=== PATIENT | female | born 1995 | race Caucasian/White ===

== ENCOUNTER 2017-04-28 10:55 | Emergency (ER) | payer OTHER ==
[2017-04-28 11:03] VITALS: BP 146/87; PULSE 74; TEMP 97.6; BMI 44.6
[2017-04-28] MEDS ORDERED: KETOROLAC TROMETHAMINE 60 MG/2 ML VIAL IM ONE (11:49)
--- NOTE | 2017-04-28 12:03 | PDOC ---
History of Present Illness - General Chief Complaint: Sore Throat Stated Complaint: THROAT PAIN Time Seen by Provider: 04/28/17 11:17 - History of Present Illness Initial Comments: 04/28/17 11:49 CHIEF COMPLAINT: throat pain HISTORY OF PRESENT ILLNESS: 22 yo F with recent T&A (3 days ago) presents to fast track with pain to throat and swelling to tongue unrelieved by oxycodone and prednisone. Patient states "my ENT doctor did say that it would take a week or so, but it just doesn't feel like it's getting better yet." PAST MEDICAL HISTORY: Denies past medical history FAMILY HISTORY: Denies SOCIAL HISTORY: Denies tobacco, alcohol, illicit drug use. SURGICAL HISTORY: Denies ALLERGIES: No known drug allergies REVIEW OF SYSTEMS General/Constitutional: Denies fever or chills. HEENT: Throat pain. Denies change in vision. Denies ear pain or discharge. Cardiovascular: Denies chest pain or shortness of breath. Respiratory: Denies cough, wheezing. Gastrointestinal: Denies nausea, vomiting, diarrhea. Genitourinary: Denies dysuria, frequency, or change in urination. Musculoskeletal: Denies joint or muscle swelling or pain. Denies neck or back pain. Skin: Denies rash. PHYSICAL EXAM General Appearance: Well-appearing, appropriately dressed. No apparent distress. HEENT: S/p tonsillectomy, granulation appreciated to b/l surgical sites. No bleeding, erythema, discharge. Tongue swelling appreciated. EOMI, PERRLA, normal voice, TMs normal, pharynx normal. No conjunctival pallor. No photophobia, scleral icterus. Neck: Supple. Trachea midline. No tenderness, rigidity, carotid bruit, stridor , lymphadenopathy, or thyromegaly. Respiratory/Chest: Lungs CTAB. Cardiovascular: RRR. S1, S2. Gastrointestinal/Abdominal: Normal bowel sounds. Abdomen soft, non-distended. No tenderness or rebound tenderness. No organomegaly, pulsatile mass, guarding , hernia, hepatomegaly, splenomegaly. Musculoskeletal/Extremities: Normal inspection. FROM of all extremities, normal capillary refill. Pelvis Stable. No CVA tenderness. No tenderness to extremities, pedal edema, swelling, erythema or deformity. Integumentary: Appropriate color, dry, warm. No cyanosis, erythema, jaundice or rash Neurologic: set illustrator II-XII intact. Fully oriented, alert. Appropriate mood/affect. Motor strength 5/5. No appreciable EOM palsy, facial droop or sensory deficit. Past History - Past Medical History Allergies/Adverse Reactions: Allergies Allergy/AdvReac Type Severity Reaction Status Date / Time No Known Allergies Allergy Verified 04/28/17 11:03 Home Medications: Ambulatory Orders Prednisolone Oral Solution [Orapred (5Mg/5Ml) Oral Solution -] 20 mg PO DAILY # 100 ml 04/28/17 Pseudoephedrine HCl [Sudafed *Pediatric Liquid* -] 10 ml PO DAILY PRN #200 ml COPD: No Other medical history: HECTOR DENIES MED HX - Suicide/Smoking/Psychosocial Hx Smoking History: Never smoked Hx Alcohol Use: No Drug/Substance Use Hx: No *Physical Exam - Vital Signs Last Vital Signs Temp Pulse Resp BP Pulse Ox 97.6 F 74 16 146/87 100 04/28/17 10:59 04/28/17 10:59 04/28/17 10:59 04/28/17 10:59 04/28/17 10:59 Medical Decision Making - Medical Decision Making 04/28/17 12:03 22 yo F with recent T&A (3 days ago) presents to fast track with pain to throat and swelling to tongue unrelieved by oxycodone and prednisone. Patient speaking in full sentences, denies any difficulty breathing. Patient denies any change of . -Toradol 60 mg IM Will change prednisone tab rx to methylprednisone liquid. Advised patient to f/u with oral surgeon tomorrow and of signs and symptoms for return to ER. Patient verbalized understanding and agrees to plan. *DC/Admit/Observation/Transfer Diagnosis at time of Disposition: Throat pain - Discharge Dispostion Disposition: HOME - Prescriptions Prescriptions: Prednisolone Oral Solution [Orapred (5Mg/5Ml) Oral Solution -] 20 mg PO DAILY # 100 ml Pseudoephedrine HCl [Sudafed *Pediatric Liquid* -] 10 ml PO DAILY PRN #200 ml PRN Reason: congestion - Referrals Referrals: Braulio Alaniz [Non Staff, Medical] - - Patient Instructions Printed Discharge Instructions: DI for Tonsillectomy-Adult Additional Instructions: Please take medications as prescribed; you may discontinue to the tablets of Prednisone. Please call your oral surgeon TOMORROW and advise him of your persistent pain and symptoms. If you develop any fever, chills, nausea, vomiting, diarrhea, or feel like you are having difficulty breathing, please return to the ER. - Post Discharge Activity
[2017-04-28] MEDS ORDERED: KETOROLAC TROMETHAMINE 60 MG/2 ML VIAL ONE (12:06)
[2017-04-28] MEDS ORDERED: prednisoLONE SODIUM PHOSPHATE 5 MG/5 ML ORAL SOLN BOTTLE PO ONE (12:09)
[2017-04-28] MEDS ORDERED: prednisoLONE SODIUM PHOSPHATE 15 MG/5 ML ORAL SOLN BOTTLE ONE (12:14)
== END 2017-04-28 12:27 | disposition home or self-care (01) ==
LOC: JERFT 10:55
PROC: 3E0233Z Introduction of Anti-inflammatory into Muscle, Percutaneous Approach (ICD-10-PCS; principal; 2017-04-28)
DX: J02.9 Acute pharyngitis, unspecified (principal)
CPT/HCPCS: 96372; 99281-25

== ENCOUNTER 2018-01-17 21:24 | Emergency (ER) | payer OTHER ==
[2018-01-17 21:29] VITALS: BP 119/55; PULSE 74; TEMP 98.8; BMI 40.8
--- NOTE | 2018-01-17 21:45 | PDOC ---
History of Present Illness - General Chief Complaint: Bite Stated Complaint: CAT BITE Time Seen by Provider: 01/17/18 21:39 - History of Present Illness Initial Comments: 23-year-old female with a past medical history significant for reflux she takes omeprazole her tetanus is up-to-date, she presents for evaluation of cat scratches and bites which occurred about half hour prior to arrival. She states the cat may have been jealous because she was putting her friend's dog the cat is up-to-date on vaccinations and can be observed the cat belongs to her friend 01/17/18 21:42 Past History - Past Medical History Allergies/Adverse Reactions: Allergies Allergy/AdvReac Type Severity Reaction Status Date / Time cat dander Allergy Verified 01/17/18 21:31 Home Medications: Ambulatory Orders Amox-Tr/K Cl [Augmentin - 875Mg Tablet] 1 tab PO BID #20 tablet 01/17/18 Omeprazole 20 mg PO ASDIR 01/17/18 Anemia: No COPD: No DVT: No - Surgical History Abdominal Surgery: Yes (sleeve) - Suicide/Smoking/Psychosocial Hx Smoking History: Never smoked Have you smoked in the past 12 months: No Hx Alcohol Use: No Drug/Substance Use Hx: No Substance Use Type: None Review of Systems - Review of Systems Integumentary: Yes: See HPI All Other Systems: Reviewed and Negative *Physical Exam - Vital Signs Last Vital Signs Temp Pulse Resp BP Pulse Ox 98.8 F 74 18 119/55 100 01/17/18 21:27 01/17/18 21:27 01/17/18 21:27 01/17/18 21:27 01/17/18 21:27 - Physical Exam Comments: There are multiple puncture alexander and excoriations without any signs of infection on the right forearm volar aspect, right thigh and abdomen. All alexander or clean and dry with normal surrounding skin color and temperature 01/17/18 21:43 *DC/Admit/Observation/Transfer Diagnosis at time of Disposition: Cat bite involving extremity - Discharge Dispostion Disposition: HOME Condition at time of disposition: Stable Decision to Admit order: No - Prescriptions Prescriptions: Amox-Tr/K Cl [Augmentin - 875Mg Tablet] 1 tab PO BID #20 tablet - Referrals Referrals: Dillon Fine [Non Staff, Medical] - - Patient Instructions Printed Discharge Instructions: How to Care for a Domestic Animal Bite Additional Instructions: Return to the emergency room should he develop any pain drainage or swelling around the areas of bites or scratches take the antibiotics as directed. Follow- up with the primary care physician in 2-3 days for further evaluation and treatment options. Keep the areas clean and dry with soap and water new may leave them open to air. He only need to cover the material draining. He may take Tylenol for any discomfort you have. Do not take any Advil Aleve or Motrin. - Post Discharge Activity
== END 2018-01-17 22:10 | disposition home or self-care (01) ==
LOC: JERFT 21:24
DX: S51.851A Open bite of right forearm, initial encounter (principal); S71.151A Open bite, right thigh, initial encounter; S31.159A Open bite of abdominal wall, unspecified quadrant without penetration into peritoneal cavity, initial encounter; W55.01XA Bitten by cat, initial encounter; Y93.K9 Activity, other involving animal care; Y92.018 Other place in single-family (private) house as the place of occurrence of the external cause; Y99.8 Other external cause status
CPT/HCPCS: 99281-25

== ENCOUNTER 2018-03-04 08:40 | Emergency (ER) | payer OTHER ==
[2018-03-04 08:52] VITALS: TEMP 98.1; BMI 37.8
--- NOTE | 2018-03-04 09:26 | PDOC ---
History of Present Illness - General History Source: Patient Exam Limitations: No Limitations - History of Present Illness Initial Comments: 03/04/18 09:54 The patient is a 23 year old female, with a significant PMH of gastric bypass in December who presents to the emergency department with abdominal pain since 5: 30AM this morning. Patient describes the abdominal pain as crampy, constant with associated back discomfort. Patient reports chills, nausea and one episode of nonbloody, nonbilious vomit. Patient has followed up at [facility] after the gastric sleeve surgery. Patient states she ate some pretzels before going to bed last night. Patient's last bowel movement was this morning, and reports it was normal. Patient denies similar symptoms in the past. Last menstrual period was one month ago. The patient denies chest pain, shortness of breath, headache and dizziness. Denies fever, diarrhea and constipation. Denies dysuria, frequency, urgency and hematuria. Allergies: NKA Past surgical history: None reported. Social history: No reported alcohol, drug or cigarette use. PCP: Dr. Dominguez Collier <Virginie Horner - Last Filed: 03/04/18 09:54> - General History Source: Patient Exam Limitations: No Limitations <Any Ji - Last Filed: 03/06/18 19:18> - General Chief Complaint: Pain, Acute Stated Complaint: STOMACH/BACK PAIN Time Seen by Provider: 03/04/18 09:25 Past History <Virginie Horner - Last Filed: 03/04/18 09:54> - Past Medical History Anemia: No COPD: No DVT: No - Surgical History Abdominal Surgery: Yes (sleeve) - Suicide/Smoking/Psychosocial Hx Smoking History: Never smoked Have you smoked in the past 12 months: No Hx Alcohol Use: No Drug/Substance Use Hx: No Substance Use Type: None <Any Ji - Last Filed: 03/06/18 19:18> - Past Medical History Allergies/Adverse Reactions: Allergies Allergy/AdvReac Type Severity Reaction Status Date / Time cat dander Allergy Verified 03/04/18 08:52 Home Medications: Ambulatory Orders NK [No Known Home Medication] 03/04/18 Review of Systems - Review of Systems Able to Perform ROS?: Yes Comments:: 03/04/18 09:58 ADULT ROS GENERAL/CONSTITUTIONAL: (+) chills. No fever. No weakness. HEAD, EYES, EARS, NOSE AND THROAT: No change in vision. No ear pain or discharge. No sore throat. CARDIOVASCULAR: No chest pain or shortness of breath. RESPIRATORY: No cough, wheezing, or hemoptysis. GASTROINTESTINAL: (+) Abdominal pain. (+) nausea. (+) vomiting. No diarrhea or constipation. GENITOURINARY: No dysuria, frequency, or change in urination. MUSCULOSKELETAL: No joint or muscle swelling or pain. No neck or back pain. SKIN: No rash NEUROLOGIC: No headache, vertigo, loss of consciousness, or change in strength/ sensation. ENDOCRINE: No increased thirst. No abnormal weight change. HEMATOLOGIC/LYMPHATIC: No anemia, easy bleeding, or history of blood clots. ALLERGIC/IMMUNOLOGIC: No hives or skin allergy. <Virginie Horner - Last Filed: 03/04/18 09:54> *Physical Exam - Vital Signs Last Vital Signs Temp Pulse Resp BP Pulse Ox 98.1 F 64 18 118/64 100 03/04/18 08:49 03/04/18 08:49 03/04/18 08:49 03/04/18 08:49 03/04/18 08:49 - Physical Exam Comments: 03/04/18 09:59 ADULT PE GENERAL: The patient is in no acute distress. HEAD: Normal with no signs of trauma. EYES: PERRLA, EOMI, sclera anicteric, conjunctiva clear. ENT: Ears normal, nares patent, oropharynx clear without exudates. Moist mucous membranes. NECK: Normal range of motion, supple without lymphadenopathy, JVD, or masses. LUNGS: Breath sounds equal, clear to auscultation bilaterally. No wheezes, and no crackles. HEART:Regular rate and rhythm, normal S1 and S2 without murmur, rub or gallop. ABDOMEN: Soft, nontender, normoactive bowel sounds. No guarding, no rebound. No masses palpable. EXTREMITIES: Normal range of motion, no edema. No clubbing or cyanosis. No erythema, or tenderness. NEUROLOGICAL: Cranial nerves II through XII grossly intact. Normal speech. No focal neurological deficits. MUSCULOSKELETAL: Back non-tender to palpation, no CVA tenderness SKIN: Warm, Dry, normal turgor, no rashes or lesions noted. <Virginie Horner - Last Filed: 03/04/18 09:54> - Vital Signs Last Vital Signs Temp Pulse Resp BP Pulse Ox 98.1 F 64 18 118/64 100 03/04/18 08:49 03/04/18 08:49 03/04/18 08:49 03/04/18 08:49 03/04/18 08:49 <Any Ji - Last Filed: 03/06/18 19:18> ED Treatment Course - LABORATORY CBC & Chemistry Diagram: 03/04/18 09:35 03/04/18 09:35 <Virginie Horner - Last Filed: 03/04/18 09:54> - LABORATORY CBC & Chemistry Diagram: 03/04/18 09:35 03/04/18 09:35 <Any Ji - Last Filed: 03/06/18 19:18> Medical Decision Making - Medical Decision Making Mr. Siddiqui is a 23-year-old female 2 months status post gastric sleeve presented to emergency department with diffuse abdominal pain. She's had nausea and vomiting. No fevers or chills. LMP: 1 month ago 23 yo F who presents to the ER with a complaint of abdominal pain Symptoms began this morning No fevers or chills (+) nausea (+) vomiting Pt post op s/p gastric sleeve Laboratory Tests 03/04/18 03/04/18 03/04/18 09:35 09:35 09:35 WBC 11.4 H Hgb 13.3 Hct 40.7 Plt Count 109 L BUN 7 Creatinine 0.5 L AST 123 H ALT 77 H Serum , Qual Negative Urine Blood Urine Nitrite Ur Leukocyte Esterase 03/04/18 14:00 WBC Hgb Hct Plt Count BUN Creatinine AST ALT Serum , Qual Urine Blood Negative Urine Nitrite Negative Ur Leukocyte Esterase Negative CT demonstrates probable ruptured cyst Results reviewed with patient I have explained that she should have TVUS 03/04/18 15:32 Pt very upset about note bring given something to eat and for waiting in the ER Results of patient's US reviewed with her She was given a copy Pt asked to follow up with computer video game designer 03/04/18 15:33 03/04/18 15:50 03/06/18 19:17 <Any Ji - Last Filed: 03/06/18 19:18> *DC/Admit/Observation/Transfer - Attestations Scribe Attestion: 03/04/18 09:59 Documentation prepared by Virginie Horner, acting as medical scientist for Any Ji MD. <Virginie Horner - Last Filed: 03/04/18 09:54> - Discharge Dispostion Decision to Admit order: No <Any Ji - Last Filed: 03/06/18 19:18> Diagnosis at time of Disposition: Abdominal pain Qualifiers: Abdominal location: unspecified location Qualified Code(s): R10.9 - Unspecified abdominal pain Ovarian cyst Qualifiers: Laterality: right Qualified Code(s): N83.201 - Unspecified ovarian cyst, right side - Discharge Dispostion Disposition: HOME Condition at time of disposition: Stable - Referrals Referrals: Dominguez Collier MD [Primary Care Provider] - - Patient Instructions Printed Discharge Instructions: DI for Ovarian Cyst, DI for Abdominal Pain- Adult Additional Instructions: Please review your results. Please read the [facility] ED Care Sheets describing your diagnosis. PLEASE NOTE we suggest at a minimum that you review all symptoms and final test results with a physician that will provide ongoing care for you. THANK YOU for allowing us to help begin your care of this latest issue. Keep in mind the treatment performed in the Emergency Department is NOT complete until you have followed up with your Doctor. We want you to return to the ED as soon as possible if symptoms get worse or if you have any problems whatsoever. We advised you to take the following medication(s) as directed: over the counter tylenol - Post Discharge Activity Forms/Work/School Notes: Back to Work, Back to School
[2018-03-04] MEDS ORDERED: PANTOPRAZOLE SODIUM 40 MG VIAL IVPUSH ONE (09:27)
[2018-03-04] MEDS ORDERED: morphine CARPU-JECT 4 MG/1 ML DISP.SYRIN IVPUSH ONE (09:27)
[2018-03-04] MEDS ORDERED: SODIUM CHLORIDE 1,000 ML IV STA (09:27)
[2018-03-04] MEDS ORDERED: ONDANSETRON 4 MG/2 ML VIAL IVPUSH ONE (09:36)
[2018-03-04] MEDS ORDERED: PANTOPRAZOLE SODIUM 40 MG/100 ML BAG IVPB ONE (09:45)
[2018-03-04] MEDS ORDERED: ONDANSETRON 4 MG/2 ML VIAL ONE (09:45)
[2018-03-04] MEDS ORDERED: morphine SULFATE 4 MG/ML VIAL ONE (09:45)
[2018-03-04 09:49] LABS: BASO % 0.2 % (0-2.0); EOS % 0.8 % (0-4.5); HEMATOCRIT 40.7 % (32.4-45.2); HEMOGLOBIN 13.3 GM/dL (10.7-15.3); LYMPH % 10.3 % (8-40); MCH 28.5 pg (25.7-33.7); MCHC 32.8 g/dl (32.0-36.0); MEAN CELL VOLUME 86.9 fl (80-96); MEAN PLT VOLUME 13.1 fl (7.5-11.1); MONO % 8.6 % (3.8-10.2); NEUT % 80.1 % (42.8-82.8); PLATELET COUNT 109 K/MM3 (134-434); RBC 4.68 M/mm3 (3.60-5.2); RDW 14.4 % (11.6-15.6); WHITE BLOOD COUNT 11.4 K/mm3 (4.0-10.0)
[2018-03-04 10:23] LABS: ALK PHOS 77 U/L (45-117); AMYLASE 36 U/L (25-115); ANION GAP 11 MMOL/L (8-16); BILIRUBIN,TOTAL 0.8 mg/dL (0.2-1); BLOOD UREA NITROGEN 7 mg/dL (7-18); CALCIUM 9.1 mg/dL (8.5-10.1); CHLORIDE 107 mmol/L (98-107); CO2 22 mmol/L (21-32); CREATININE 0.5 mg/dL (0.55-1.3); GLUCOSE,RANDOM 126 mg/dL (74-106); LIPASE 69 U/L (73-393); POTASSIUM 3.6 mmol/L (3.5-5.1); SGOT/AST 123 U/L (15-37); SGPT/ALT 77 U/L (13-61); SODIUM 140 mmol/L (136-145); TOT PROT 7.2 g/dl (6.4-8.2)
[2018-03-04 14:16] VITALS: BP 107/59; PULSE 70
[2018-03-04 14:20] LABS: PH,URINE 8.5 (5.0-8.0); URINE APPEARANCE Clear; URINE BILIRUBIN Negative (<2.0 mg/dL); URINE COLOR Yellow; URINE GLUCOSE (UA) Negative (NEGATIVE); URINE KETONE Negative (NEGATIVE); URINE LEUK ESTERASE Negative (NEGATIVE); URINE NITRITE Negative (NEGATIVE); URINE PROTEIN Negative (NEGATIVE); URINE UROBILINOGEN 0.2 mg/dL (0.2-1.0)
== END 2018-03-04 15:40 | disposition home or self-care (01) ==
LOC: JER 08:40
PROC: 3E033NZ Introduction of Analgesics, Hypnotics, Sedatives into Peripheral Vein, Percutaneous Approach (ICD-10-PCS; principal; 2018-03-04)
PROC: 3E033GC Introduction of Other Therapeutic Substance into Peripheral Vein, Percutaneous Approach (ICD-10-PCS; 2018-03-04)
PROC: 3E0337Z Introduction of Electrolytic and Water Balance Substance into Peripheral Vein, Percutaneous Approach (ICD-10-PCS; 2018-03-04)
DX: R10.9 Unspecified abdominal pain (principal); N83.201 Unspecified ovarian cyst, right side
CPT/HCPCS: 36415; 74177-TC; 76830-TC; 80053; 81003; 82150; 83690; 84703; 85025; 87086; 96361; 96374; 96375; 99283-25; J7030

== ENCOUNTER → 2018-03-06 | Emergency (ER) | payer OTHER ==
--- NOTE | 2018-03-06 20:09 | PDOC ---
Rapid Medical Evaluation Chief Complaint: Pain Time Seen by Provider: 03/06/18 20:05 Medical Evaluation: Allergies Allergy/AdvReac Type Severity Reaction Status Date / Time cat dander Allergy Verified 03/04/18 08:52 03/06/18 20:06 c/o abdominal pain with nausea. denies vomiting history of ovarian cyst PE: patient alert ox3. A: abdominal pain P: ua urine patient to the ER for further management of care. Discharge Disposition - Diagnosis Abdominal pain Qualifiers: Abdominal location: upper abdomen, unspecified Qualified Code(s): R10.10 - Upper abdominal pain, unspecified - Referrals Referrals: Dominguez Collier MD [Primary Care Provider] - - Patient Instructions - Post Discharge Activity
[2018-03-06 20:11] VITALS: BP 92/42; PULSE 65; TEMP 98.4; BMI 38.9
== END | disposition left against medical advice (07) ==
LOC: JER 19:42
DX: R10.10 Upper abdominal pain, unspecified (principal); Z87.42 Personal history of other diseases of the female genital tract
CPT/HCPCS: 99281-25

== ENCOUNTER 2018-06-21 21:46 | Emergency (ER) | payer OTHER ==
[2018-06-21 21:55] VITALS: BP 127/77; PULSE 58; TEMP 97.5; BMI 32.8
--- NOTE | 2018-06-21 22:29 | PDOC ---
History of Present Illness - General History Source: Patient Exam Limitations: No Limitations - History of Present Illness Initial Comments: 06/21/18 23:28 The patient is a 23 year old female, with a significant past medical history of gastric sleeve, ruptured ovarian cyst, who presents to the emergency department with, epigastric pain radiating to the RUQ and mid-back with associated nausea and vomiting. Patient endorses her symptoms to be similar to her ruptured ovarian cysts. She denies recent fevers, chills, headache or dizziness. She denies recent diarrhea or constipation. She denies recent dysuria, frequency, urgency or hematuria. She denies recent chest pain or shortness of breath. Allergies: NKDA Past surgical history: Gastric sleeve. Social history: Nonsmoker. Denies EtOH use and recreational drug use. Primary Care Physician: Dr. Dominguez Collier <Geno Felix - Last Filed: 06/22/18 00:02> <Yris Hdz - Last Filed: 06/22/18 00:54> <Nicki Dietz - Last Filed: 06/22/18 01:55> - General Chief Complaint: Nausea/Vomiting Stated Complaint: SICK,ABDOMINAL PAIN Time Seen by Provider: 06/21/18 22:29 Past History <Geno Felix - Last Filed: 06/22/18 00:02> <Yris Hdz - Last Filed: 06/22/18 00:54> - Past Medical History Anemia: No COPD: No DVT: No - Surgical History Abdominal Surgery: Yes (sleeve) GI Surgery: Yes (Gastric Sleeve 12/2017) - Suicide/Smoking/Psychosocial Hx Smoking History: Never smoked Have you smoked in the past 12 months: No Information on smoking cessation initiated: No Hx Alcohol Use: No Drug/Substance Use Hx: No Substance Use Type: None <Nicki Dietz - Last Filed: 06/22/18 01:55> - Past Medical History Allergies/Adverse Reactions: Allergies Allergy/AdvReac Type Severity Reaction Status Date / Time cat dander Allergy Verified 06/21/18 21:54 No Known Drug Allergies Allergy Verified 06/21/18 23:03 Home Medications: Ambulatory Orders Nitrofurantoin Monohyd/M-Cryst [Macrobid -] 100 mg PO BID #14 capsule 06/22/18 Review of Systems - Review of Systems Able to Perform ROS?: Yes Comments:: 06/21/18 23:28 GENERAL/CONSTITUTIONAL: No fever or chills. No weakness. HEAD, EYES, EARS, NOSE AND THROAT: No change in vision. No ear pain or discharge. No sore throat. CARDIOVASCULAR: No chest pain or shortness of breath. RESPIRATORY: No cough, wheezing, or hemoptysis. +GASTROINTESTINAL: Nausea. Vomiting. Epigastic abdominal pain radiating to RUQ. No diarrhea or constipation. GENITOURINARY: No dysuria, frequency, or change in urination. MUSCULOSKELETAL: No joint or muscle swelling or pain. No neck or back pain. SKIN: No rash NEUROLOGIC: No headache, vertigo, loss of consciousness, or change in strength/ sensation. ENDOCRINE: No increased thirst. No abnormal weight change. HEMATOLOGIC/LYMPHATIC: No anemia, easy bleeding, or history of blood clots. ALLERGIC/IMMUNOLOGIC: No hives or skin allergy. All Other Systems: Reviewed and Negative <Geno Felix - Last Filed: 06/22/18 00:02> *Physical Exam - Vital Signs Last Vital Signs Temp Pulse Resp BP Pulse Ox 97.5 F L 58 L 16 127/77 100 06/21/18 21:52 06/21/18 21:52 06/21/18 21:52 06/21/18 21:52 06/21/18 21:52 - Physical Exam Comments: 06/22/18 00:02 GENERAL: Awake, alert, and fully oriented, in no acute distress HEAD: No signs of trauma EYES: PERRLA, EOMI, sclera anicteric, conjunctiva clear ENT: Auricles normal inspection, hearing grossly normal, nares patent, oropharynx clear without exudates. Moist mucosa NECK: Normal ROM, supple, no lymphadenopathy, JVD, or masses LUNGS: Breath sounds equal, clear to auscultation bilaterally. No wheezes, and no crackles HEART: Regular rate and rhythm, normal S1 and S2, no murmurs, rubs or gallops ABDOMEN: Negative Slayden sign. Soft, nontender, normoactive bowel sounds. No guarding, no rebound. No masses EXTREMITIES: Normal range of motion, no edema. No clubbing or cyanosis. No cords, erythema, or tenderness NEUROLOGICAL: Cranial nerves II through XII grossly intact. Normal speech, normal gait SKIN: Warm, Dry, normal turgor, no rashes or lesions noted. <Geno Felix - Last Filed: 06/22/18 00:02> - Vital Signs Last Vital Signs Temp Pulse Resp BP Pulse Ox 97.5 F L 58 L 16 127/77 100 06/21/18 21:52 06/21/18 21:52 06/21/18 21:52 06/21/18 21:52 06/21/18 21:52 <Yris Hdz - Last Filed: 06/22/18 00:54> - Vital Signs Last Vital Signs Temp Pulse Resp BP Pulse Ox 97.5 F L 58 L 16 127/77 100 06/21/18 21:52 06/21/18 21:52 06/21/18 21:52 06/21/18 21:52 06/21/18 21:52 <Nicki Dietz - Last Filed: 06/22/18 01:55> Moderate Sedation - Procedure Monitoring Vital Signs: Procedure Monitoring Vital Signs Temperature 97.5 F L 06/21/18 21:52 Pulse Rate 58 L 06/21/18 21:52 Respiratory Rate 16 06/21/18 21:52 Blood Pressure 127/77 06/21/18 21:52 O2 Sat by Pulse Oximetry (%) 100 06/21/18 21:52 <Geno Felix - Last Filed: 06/22/18 00:02> - Procedure Monitoring Vital Signs: Procedure Monitoring Vital Signs Temperature 97.5 F L 06/21/18 21:52 Pulse Rate 58 L 06/21/18 21:52 Respiratory Rate 16 06/21/18 21:52 Blood Pressure 127/77 06/21/18 21:52 O2 Sat by Pulse Oximetry (%) 100 06/21/18 21:52 <Yris Hdz - Last Filed: 06/22/18 00:54> - Procedure Monitoring Vital Signs: Procedure Monitoring Vital Signs Temperature 97.5 F L 06/21/18 21:52 Pulse Rate 58 L 06/21/18 21:52 Respiratory Rate 16 06/21/18 21:52 Blood Pressure 127/77 06/21/18 21:52 O2 Sat by Pulse Oximetry (%) 100 06/21/18 21:52 <Nicki Dietz - Last Filed: 06/22/18 01:55> ED Treatment Course - LABORATORY CBC & Chemistry Diagram: 06/21/18 23:15 06/21/18 23:15 <Geno Felix - Last Filed: 06/22/18 00:02> - LABORATORY CBC & Chemistry Diagram: 06/21/18 23:15 06/21/18 23:15 - ADDITIONAL ORDERS Additional order review: Laboratory Results 06/21/18 23:35 Urine HCG, Qual Negative 06/21/18 23:15 RBC 4.49 MCV 88.4 MCHC 34.0 RDW 12.7 D MPV 13.0 H Neutrophils % 82.5 Lymphocytes % 7.6 L D Monocytes % 9.1 Eosinophils % 0.6 Basophils % 0.2 - RADIOLOGY Radiograph Interpretation: EXAM: Ultrasound abdomen limited right upper quadrant and limited abdominal duplex. IMPRESSION: Gallstones without secondary findings of cholecystitis. Reported by: Dakota Cage, 06/22/2018 00:40 06/22/18 00:54 - Medications Given in the ED: ED Medications Discontinued Medications Generic Name Dose Route Start Last Admin Trade Name Freq PRN Reason Stop Dose Admin Sodium Chloride 1,000 ml 06/22/18 00:31 06/22/18 00:44 Normal Saline - IV 06/22/18 00:32 1,000 ml ONCE ONE Administration <Yris Hdz - Last Filed: 06/22/18 00:54> - LABORATORY CBC & Chemistry Diagram: 06/21/18 23:15 06/21/18 23:15 <Nicki Dietz - Last Filed: 06/22/18 01:55> Medical Decision Making - Medical Decision Making 06/22/18 00:38 WBC slightly elevated; pt was vomiting; possible stomach virus. Pt is preg negative. 06/22/18 00:51 Patient Name: MARTHA BLISS THIS IS A PRELIMINARY REPORT FROM [facility] DATE OF SERVICE: 2018-06-21 23:44:16 IMAGES: 48 EXAM: Ultrasound abdomen limited right upper quadrant and limited abdominal duplex HISTORY: Rule out gallstones or cholecystitis COMPARISON: None. FINDINGS: Right upper quadrant ultrasound:The liver is normal, without mass or biliary duct dilation. The gallbladde contains small stones without secondary findings for cholecystitis. The CBD is not dilated and measures4 millimeters in diameter. Right kidney measures 11 pointcentimeters in length and is unremarkable. The visualized aorta and IVC are normal. Pancreas is partially obscured, but appears normal. Abdominal duplex: There is normal hepatopedal flow in the main portal vein. IMPRESSION: Gallstones without secondary findings of cholecystitis. THIS DOCUMENT HAS BEEN ELECTRONICALLY SIGNED <Nicki Dietz - Last Filed: 06/22/18 01:55> *DC/Admit/Observation/Transfer - Attestations Scribe Attestion: 06/21/18 23:29 Documentation prepared by Geno Felix, acting as medical bill processor for Nicki Dietz MD. <Geno Felix - Last Filed: 06/22/18 00:02> - Attestations Scribe Attestion: Documentation prepared by BETHEL Rolle, acting as medical bill processor for Nicki Dietz MD. 06/22/18 00:55 <Yris Hdz - Last Filed: 06/22/18 00:54> <Nicki Dietz - Last Filed: 06/22/18 01:55> Diagnosis at time of Disposition: Abdominal pain, Gastroenteritis, UTI (urinary tract infection) - Discharge Dispostion Disposition: HOME Condition at time of disposition: Stable - Prescriptions Prescriptions: Nitrofurantoin Monohyd/M-Cryst [Macrobid -] 100 mg PO BID #14 capsule - Patient Instructions Printed Discharge Instructions: Viral Gastroenteritis, Urinary Tract Infection
[2018-06-21 23:27] LABS: BASO % 0.2 % (0-2.0); EOS % 0.6 % (0-4.5); HEMATOCRIT 39.7 % (32.4-45.2); HEMOGLOBIN 13.5 GM/dL (10.7-15.3); LYMPH % 7.6 % (8-40); MCH 30.1 pg (25.7-33.7); MEAN CELL VOLUME 88.4 fl (80-96); MONO % 9.1 % (3.8-10.2); NEUT % 82.5 % (42.8-82.8); PLATELET COUNT 104 K/MM3 (134-434); RBC 4.49 M/mm3 (3.60-5.2); RDW 12.7 % (11.6-15.6); WHITE BLOOD COUNT 15.5 K/mm3 (4.0-10.0)
[2018-06-22 00:02] LABS: URINE APPEARANCE SLCLOUDY; URINE BILIRUBIN NEGATIVE (<2.0 mg/dL); URINE COLOR YELLOW; URINE GLUCOSE (UA) NEGATIVE (NEGATIVE); URINE KETONE NEGATIVE (NEGATIVE); URINE LEUK ESTERASE TRACE (NEGATIVE); URINE NITRITE NEGATIVE (NEGATIVE); URINE PROTEIN NEGATIVE (NEGATIVE); URINE UROBILINOGEN 4.0 E.U/dl mg/dL (0.2-1.0)
[2018-06-22 00:04] LABS: HCG,QUALITATIVE URINE Negative
[2018-06-22] MEDS ORDERED: SODIUM CHLORIDE 0.9% 500 ML INFUS.BAG IV ONE (00:31)
[2018-06-22 01:12] LABS: EPI CELLS FEW /HPF (FEW); URINE BACTERIA RARE /hpf (NONE SEEN); URINE MUCUS MODERATE
[2018-06-22] MEDS ORDERED: NITROFURANTOIN MACROCRYSTAL 50 MG CAPSULE (FP) PO SCH (01:15)
[2018-06-22] MEDS ORDERED: NITROFURANTOIN MACROCRYSTAL 50 MG CAPSULE (FP) ONE (01:24)
[2018-06-22 01:34] LABS: ALK PHOS 85 U/L (45-117); ANION GAP 7 MMOL/L (8-16); BILIRUBIN,TOTAL 0.4 mg/dL (0.2-1); BLOOD UREA NITROGEN 12 mg/dL (7-18); CALCIUM 8.8 mg/dL (8.5-10.1); CHLORIDE 104 mmol/L (98-107); CO2 27 mmol/L (21-32); CREATININE 0.5 mg/dL (0.55-1.3); GLUCOSE,RANDOM 87 mg/dL (74-106); LIPASE 85 U/L (73-393); POTASSIUM 3.5 mmol/L (3.5-5.1); SGOT/AST 94 U/L (15-37); SGPT/ALT 56 U/L (13-61); SODIUM 138 mmol/L (136-145); TOT PROT 7.8 g/dl (6.4-8.2)
== END 2018-06-22 01:59 | disposition home or self-care (01) ==
LOC: JER 21:46
DX: K52.9 Noninfective gastroenteritis and colitis, unspecified (principal); N39.0 Urinary tract infection, site not specified; K80.20 Calculus of gallbladder without cholecystitis without obstruction
CPT/HCPCS: 36415; 76705-TC; 80053; 81003; 81015; 83690; 84703; 85025; 99284-25

== ENCOUNTER 2018-07-08 17:04 | Emergency (ER) | payer OTHER ==
[2018-07-08 17:28] VITALS: BP 107/54; PULSE 60; TEMP 98.6; BMI 32.4
--- NOTE | 2018-07-08 17:30 | PDOC ---
Rapid Medical Evaluation Chief Complaint: Pain, Acute Time Seen by Provider: 07/08/18 17:24 Medical Evaluation: Allergies Allergy/AdvReac Type Severity Reaction Status Date / Time cat dander Allergy Verified 06/21/18 21:54 No Known Drug Allergies Allergy Verified 06/21/18 23:03 07/08/18 17:26 c/o RUQ pain radiating to back after eating salmon . 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 A: abdominal pain P; labs abd US Discharge Disposition - Diagnosis Abdominal pain Qualifiers: Abdominal location: upper abdomen, unspecified Qualified Code(s): R10.10 - Upper abdominal pain, unspecified - Referrals - Patient Instructions - Post Discharge Activity
== END 2018-07-08 21:09 | disposition home or self-care (01) ==
LOC: JER 17:04
DX: R10.10 Upper abdominal pain, unspecified (principal); Z98.84 Bariatric surgery status
CPT/HCPCS: 99281-25